=== PATIENT | female | born 1990 | race Caucasian/White ===

== ENCOUNTER 2019-03-16 15:40 | Emergency (ER) | payer MEDICAID, SELFPAY ==
[2019-03-16 15:44] VITALS: BP 127/71; PULSE 104; RESP 14; TEMP 36.8; O2SAT 96; BMI 22.6
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
== END 2019-03-16 16:36 | disposition home or self-care (01) ==
LOC: ED 16:30
PROVIDERS: Emergency Provider Emergency Medicine; PCP Pediatrics
DX: S40.011A Contusion of right shoulder, initial encounter (principal); V49.88XA Car occupant (driver) (passenger) injured in other specified transport accidents, initial encounter; Y93.89 Activity, other specified
CPT/HCPCS: 73030; 99284